=== PATIENT | male | born 1985 | race African-American/Black ===

== ENCOUNTER 2018-06-14 23:05 | Emergency (ER) | payer OTHER, SELFPAY ==
[2018-06-15 00:04] VITALS: BP 148/95; PULSE 57; RESP 16; O2SAT 100; BMI 24.6
--- NOTE | 2018-06-15 02:22 | ED.DENTAL ---
HPI - Dental/Oral General Chief complaint: Dental/Oral Stated complaint: pt states lower left tooth abscess Time Seen by Provider: 06/15/18 01:41 Source: patient Mode of arrival: ambulatory Limitations: no limitations History of Present Illness HPI Narrative: 32-year-old male, smoker presents with chief complaint of left lower dental abscess with spontaneous drainage. He states the tooth has been giving him trouble for about a year off but facial swelling and drainage has only been present for the day. He denies fever or shaking chills. He denies any nausea, vomiting or diarrhea. He has a dentist in the community whom he plans to follow up with MD Complaint: tooth pain Location: Tooth # (19) Onset (ago): year(s) Duration: intermittent Severity: moderate Relieving factors: nothing Exacerbating factors: chewing, cold and heat Context: history of dental caries Associated symptoms: gum swelling Treatment prior to arrival: none Related Data Previous Rx's Medication Instructions Recorded penicillin V potassium 500 mg PO QID 7 Days #28 tab 06/15/18 Allergies Allergy/AdvReac Type Severity Reaction Status Date / Time No Known Drug Allergies Allergy Verified 06/15/18 00:04 Review of Systems Constitutional Denies chills, Denies fever(s), Denies lethargy and Denies weakness Eyes Denies change in vision, Denies eye discharge, Denies irritation and Denies loss of vision ENT Ears, Nose, Mouth, and Throat: Denies change in voice, Reports dental pain, Reports facial pain, Denies neck pain and Denies sore throat Cardiovascular Denies chest pain, Denies irregular heart rhythm, Denies lightheadedness, Denies palpitations, Denies dyspnea, Denies dyspnea on exertion and Denies orthopnea Respiratory Denies cough, Denies dyspnea, Denies dyspnea on exertion and Denies wheezing Gastrointestinal Gastrointestinal: Denies abdominal pain, Denies change in bowel habits, Denies diarrhea, Denies nausea and Denies vomiting Genitourinary Denies hematuria, Denies flank pain, Denies urinary incontinence and Denies urinary urgency Musculoskeletal Denies neck pain Integumentary/Breasts Denies pruritus, Denies erythema, Denies rash and Denies wounds Neurologic Denies confusion, Denies loss of vision and Denies weakness Psychiatric Denies anxiety, Denies confusion, Denies depression, Denies homicidal ideation and Denies suicidal ideation Endocrine Denies palpitations Hematologic/Lymphatic Denies easy bruising Allergic/Immunologic Denies wheezing PFSH Social History Smoking Status: Current every day smoker Social History Smoking Status: Current every day smoker Exam Narrative Exam Narrative: GEN: AOx3 and in mild distress ENT: Minimal left-sided facial swelling. Intraoral exam notes abnormal to 19. With surrounding edema of the gum but no fluctuance. There appears to be spontaneous drainage EYES: Pupils are equal, round, and reactive to light and accommodation. Extraoccular muscles are intact bilaterally. There is no subconjunctival hemorrhage or exudate. CHEST: Lungs are clear to auscultation bilaterally and free of wheezes, rales, or rhonchi. Heart rate is regular rhythm, there are no murmurs, clicks, rubs, or gallops. There is no chest wall tenderness. ABD: Abdomen is soft and nontender. There is no guarding or rebound. Bowel sounds are normal in all 4 quadrants. There is no mass or organomegaly. EXT: Full painless ROM of all extremities with no loss of sensation or strength. SKIN: Warm, pink, and dry. No erythema or rash Initial Vital Signs Initial Vital Signs: Vital Signs Pulse Rate 57 L 06/15/18 00:04 Respiratory Rate 16 06/15/18 00:04 Blood Pressure 148/95 H 06/15/18 00:04 Pulse Oximetry 100 06/15/18 00:04 Procedures Nerve Block Nerve Block 1: Time out performed: Yes Local Anesthetic: lidocaine 1% and bupivacaine 0.25% Amount of anesthesia used (mL): 4 Side: left Intraoral Nerve Block: inferior alveolar Procedure Successful: Yes Patient Tolerated Procedure: Well Course Orders Ordered: Discontinued Medications Penicillin V Potassium (Penicillin Vk 250mg Tab Prepack) 1 bottle MISC SEEINSTR ONE Stop: 06/15/18 02:28 Last Admin: 06/15/18 02:30 Dose: 1 bottle Vital Signs - 8 hr 06/15/18 00:04 Pulse Rate 57 L Respiratory Rate 16 Blood Pressure 148/95 H Pulse Oximetry 100 Discharge Plan Departure Patient Disposition: Home Clinical Impression: Dental abscess Discharge Date/Time: 06/15/18 03:04 Interventions: ED Discharge Assessment Last Done: 06/15/18 03:04 Instructions: Tooth Abscess, DI for Tooth Decay Activity Restrictions/Additional Instructions: *You have been diagnosed with [acute dental abscess ] *What to do: *Take medications as directed *Follow up with your dentist in 2-3 days, call for an appointment. Let them know you were seen in the Emergency Department and that we ask that you be seen in follow up *Return to ER if you should have any new, worsening or concerning symptoms Prescriptions: New penicillin V potassium 500 mg tablet 500 mg PO QID 7 Days Qty: 28 RF: 0
[2018-06-15] MEDS: PENICILLIN 250 MG TAB PREPACK 1 BOTTLE MISC (02:30)
== END 2018-06-15 03:04 | disposition home or self-care (01) ==
PROVIDERS: Emergency Provider Emergency Medicine
DX: K04.7 Periapical abscess without sinus (principal)
CPT/HCPCS: 99282